=== PATIENT | female | born 1990 | race Caucasian/White ===

== ENCOUNTER 2019-09-17 09:53 | Outpatient (CLI) | payer OTHER | END 2019-09-17 14:48 | disposition home or self-care (01) | LOC: RX STUDY 09:53 | DX: N91.2 Amenorrhea, unspecified (principal); N93.8 Other specified abnormal uterine and vaginal bleeding; Q50.6 Other congenital malformations of fallopian tube and broad ligament ==

== ENCOUNTER 2021-09-01 09:29 | Outpatient (CLI) | payer OTHER | END 2021-09-01 09:45 | disposition home or self-care (01) | LOC: SONOGRAMA 09:29 → MAMO-SONO 10:30 | PROVIDERS: ATTEND Obstetrics & Gynecology Reproductive Endocrinology | DX: N93.8 Other specified abnormal uterine and vaginal bleeding (principal) ==